=== PATIENT | female | born 1980 | race Caucasian/White ===

== ENCOUNTER 2017-12-22 06:11 | Day surgery (SDC) | payer MEDICAID ==
[2017-12-22] MEDS ORDERED: MIDAZOLAM 1 MG/ML 2 ML INJ ×2 (08:40)
[2017-12-22] MEDS ORDERED: FENTAnyl 50 MCG/ML VIAL (08:40)
== END 2017-12-22 11:18 | disposition home or self-care (01) ==
LOC: GIL 06:11
DX: K21.9 Gastro-esophageal reflux disease without esophagitis (principal); B96.81 Helicobacter pylori [H. pylori] as the cause of diseases classified elsewhere; K29.60 Other gastritis without bleeding; J45.909 Unspecified asthma, uncomplicated
CPT/HCPCS: 43239; 84703; 87081